=== PATIENT | male | born 1990 | race Native Hawaiian/Other Pacific Islander ===

== ENCOUNTER 2017-01-11 01:25 | Emergency (ER) | payer SELFPAY ==
[2017-01-11] MEDS ORDERED: DiphenhydrAMINE 50 mg/ml Inj IVP STA (01:45)
[2017-01-11] MEDS ORDERED: MethylPREDNISolone 40 mg Vial IVP STA (01:45)
[2017-01-11] MEDS ORDERED: DiphenhydrAMINE 50 mg/ml Inj ONE (02:04)
--- NOTE | 2017-01-11 02:13 | C.PDOC ---
History Of Present Illness 26 year old male presents to the ED with complaints of allergic reaction prior to arrival with diffuse itchy rash. Patient states he has a previous sensitivity to shrimp and while at a constitution party tonight may have had food with shrimp in it. He denies taking medication prior to arrival, lip, or throat swelling. Time Seen by Provider: 01/11/17 01:35 Chief Complaint (Nursing): Allergic Reaction History Per: Patient History/Exam Limitations: no limitations Onset/Duration Of Symptoms: Hrs Current Symptoms Are (Timing): Still Present Context: Food Possible Cause: Food Associated Symptoms: Skin Rash. denies: Trouble Swallowing, Chest Pain Home/EMS Treatment: None Recent travel outside of the [place]: No Past Medical History Reviewed: Historical Data, Nursing Documentation, Vital Signs Vital Signs: Last Vital Signs Temp 98.2 F 01/11/17 03:50 Pulse 98 H 01/11/17 03:50 Resp 18 01/11/17 03:50 BP 136/77 01/11/17 03:50 Pulse Ox 99 01/11/17 03:50 Family History: States: Unknown Family Hx - Social History Hx Alcohol Use: No Hx Substance Use: No Review Of Systems Constitutional: Negative for: Fever, Chills Cardiovascular: Negative for: Chest Pain Respiratory: Negative for: Cough, Shortness of Breath Gastrointestinal: Negative for: Nausea, Vomiting Skin: Positive for: Rash Physical Exam - Physical Exam Appears: Non-toxic, No Acute Distress Skin: Warm, Dry, Rash (diffuse moderate hives ) Head: Atraumatic, Normacephalic Eye(s): bilateral: Normal Inspection, PERRL, EOMI Ear(s): Bilateral: Normal Oral Mucosa: Moist Tongue: Normal Appearing, No Swelling Lips: Normal Appearing, No Swelling Throat: Normal, No Erythema, No Exudate Neck: Normal ROM, Supple Chest: Symmetrical, No Deformity Cardiovascular: Rhythm Regular, No Murmur Respiratory: Normal Breath Sounds, No Rales, No Rhonchi, No Wheezing Gastrointestinal/Abdominal: Soft, No Tenderness, No Distention, No Guarding, No Rebound Extremity: Normal ROM, No Tenderness Neurological/Psych: Oriented x3 ED Course And Treatment O2 Sat by Pulse Oximetry: 97 (RA) Progress Note: Patient was given Bendaryl, Pepcid, and SOLU-medrol. Medical Decision Making Medical Decision Making: suspected allergic rxn. benadryl, steriods, pepcid, reassess 230 pt reassesed. rash/symptoms improving. will continue to reassess 3:30 pt is sleeping comfortably. On awakening, patient states symptoms have resolved. Lungs are clear, he would like to be discharged. Disposition - Disposition Disposition: HOME/ ROUTINE Disposition Time: 02:28 Condition: STABLE Additional Instructions: please follow up with your doctor. return to er with worsening symptoms or concerns. Prescriptions: DiphenhydrAMINE [Benadryl] 25 mg PO Q4 PRN #20 cap PRN Reason: Itching / Pruritus Famotidine [Pepcid] 20 mg PO DAILY #5 tab Prednisone 50 mg PO DAILY #4 tablet Instructions: Food Allergy (ED), General Allergic Reaction (ED) Forms: [employer] ([employer]) - Clinical Impression Clinical Impression: Allergic reaction - Scribe Statement The provider has reviewed the documentation as recorded by the Scribe Linda Kumar All medical record entries made by the Scribe were at my direction and personally dictated by me. I have reviewed the chart and agree that the record accurately reflects my personal performance of the history, physical exam, medical decision making, and the department course for this patient. I have also personally directed, reviewed, and agree with the discharge instructions and disposition.
[2017-01-11 03:51] VITALS: BP 136/77; PULSE 98; RESP 18; TEMP 98.2
[2017-01-11 03:57] VITALS: O2SAT 97
== END 2017-01-11 03:51 | disposition home or self-care (01) ==
LOC: C.ER 01:25
DX: T78.49XA Other allergy, initial encounter (principal); X58.XXXA Exposure to other specified factors, initial encounter
CPT/HCPCS: 96374; 96375; 99284; J1200; J2920